=== PATIENT | female | born 1980 | race Asian ===

== ENCOUNTER → 2023-10-27 07:04 | Outpatient (REF) | payer OTHER, SELFPAY | LOC: WDC 07:04 | PROVIDERS: ATTENDING PHYSICIAN Obstetrics & Gynecology; FAMILY PHYSICIAN Family Medicine | DX: Z12.31 Encounter for screening mammogram for malignant neoplasm of breast (principal) | CPT/HCPCS: 77063; 77067 ==

== ENCOUNTER → 2024-11-01 07:29 | Outpatient (REF) | payer OTHER, SELFPAY | LOC: WDC 07:29 | PROVIDERS: ATTENDING PHYSICIAN Family Medicine | DX: Z12.31 Encounter for screening mammogram for malignant neoplasm of breast (principal) | CPT/HCPCS: 77063; 77067 ==